=== PATIENT | male | born 1985 | race Caucasian/White ===

== ENCOUNTER 2023-07-09 20:55 | Emergency (ER) | payer MEDICAID ==
[~2023-07-09] VITALS: Ht 172.7 cm; Wt 81.6 kg
[2023-07-09 21:14] VITALS: BP_SYST 120; PULSE 75; RESP 20; TEMP 98; O2SAT 99
[2023-07-10] MEDS ORDERED: IBUP-1969 PO (21:29)
== END 2023-07-10 01:52 | disposition left against medical advice (07) ==
LOC: SED 20:55
DX: M79.602 Pain in left arm (principal); Z79.899 Other long term (current) drug therapy
CPT/HCPCS: 99281

== ENCOUNTER 2023-07-10 13:41 | Emergency (ER) | payer MEDICAID ==
[~2023-07-10] VITALS: Ht 172.7 cm; Wt 86.2 kg
[2023-07-10 13:41] VITALS: BP_SYST 111; PULSE 82; RESP 17; TEMP 97.6; O2SAT 99
[2023-07-10 15:13] LABS: BASOPHILS # (AUTO) 0.1 K/uL (0.0-0.2); BASOPHILS % (AUTO) 0.8 % (0.0-2.0); EOSINOPHILS # (AUTO) 0.3 K/uL (0.0-0.4); EOSINOPHILS % (AUTO) 3.4 % (0.0-4.0); HEMATOCRIT 49.9 % (36-54); HEMOGLOBIN 16.4 g/dL (14.0-18.0); LYMPHOCYTES # (AUTO) 1.9 K/uL (1.0-5.5); LYMPHOCYTES % (AUTO) 23.2 % (20.5-51.5); MEAN CORPUSCULAR HEMOGLOBIN 32 pg (27-31); MEAN CORPUSCULAR HGB CONC 33 % (32-36); MEAN CORPUSCULAR VOLUME 97 fL (79.0-98.0); MONOCYTES # (AUTO) 0.4 K/uL (0.0-1.0); MONOCYTES % (AUTO) 5.2 % (1.7-9.3); NEUTROPHILS # (AUTO) 5.4 K/uL (1.8-7.7); NEUTROPHILS % (AUTO) 67.4 % (40.0-70.0); PLATELET COUNT (AUTO) 244 K/uL (130-430); RED BLOOD CELL COUNT(AUTO) 5.14 MIL/uL (4.2-6.2); RED CELL DISTRIBUTION WIDTH 13.1 % (9.0-15.0)
[2023-07-10 15:40] LABS: ANION GAP 4 (5-15); CALCIUM 9.5 mg/dL (8.4-11.0); CARBON DIOXIDE 31 mmol/L (23-29); CHLORIDE 102 mmol/L (98-107); CREATININE 0.78 mg/dL (0.55-1.30); GFR AFRICAN AMERICAN 145 mL/min (>90); GLUCOSE 124 mg/dL (74-106); POTASSIUM 4.4 mmol/L (3.5-5.1); SODIUM SERUM 137 mmol/L (136-145); UREA NITROGEN, BLOOD 10 mg/dL (8-21)
[2023-07-10 15:47] LABS: ALANINE AMINOTRANSFERASE 34 U/L (12-78); ALBUMIN 3.6 g/dL (3.4-4.8); ASPARTATE AMINOTRANSFERASE 14 U/L (10-37); TOTAL BILIRUBIN 0.4 mg/dL (0.0-1.0)
[2023-07-10 15:49] LABS: GFR NON AFRICAN-AMERICAN 120 mL/min (>90)
[2023-07-10 16:17] LABS: TOTAL PROTEIN, SERUM 7.2 g/dL (6.4-8.3)
[2023-07-10] MEDS ORDERED: KETOROLAC TROMETHAMINE 15 MG VIAL IM ONE (20:15)
[2023-07-10] MEDS ORDERED: IBUP-1969 PO (21:29)
[2023-07-10 22:00] VITALS: BP_SYST 111; PULSE 82; RESP 17; TEMP 97.6; O2SAT 99
== END 2023-07-10 22:00 | disposition home or self-care (01) ==
LOC: SED 13:41
DX: M25.512 Pain in left shoulder (principal); E11.9 Type 2 diabetes mellitus without complications; F17.200 Nicotine dependence, unspecified, uncomplicated; Z79.899 Other long term (current) drug therapy
CPT/HCPCS: 99285; 70450; 71045; 80053; 82962; 85025; 84484; 36415; 93005; 73030; 76376; 96372; J1885